=== PATIENT | female | born 1980 | race Caucasian/White ===

== ENCOUNTER 2017-04-22 09:17 | Day surgery (SDC) | payer MEDICAID ==
[2017-04-22 09:49] VITALS: BMI 41.1
[2017-04-22] MEDS ORDERED: Lactated Ringer's 500 ML IV SCH (12:30)
[2017-04-22] MEDS ORDERED: Propofol 10 mg/ml Inj (20 ML) ONE ×2 (12:52→12:53)
[2017-04-22] MEDS ORDERED: Lidocaine Hydrochloride 10 ML INJ ONE (12:52)
[2017-04-22] MEDS ORDERED: Lactated Ringer's 500 ML IV ONE (12:56)
[2017-04-22 13:49] VITALS: O2SAT 99
[2017-04-22 14:33] VITALS: BP 121/69; PULSE 69; RESP 18; TEMP 97.8
== END 2017-04-22 14:28 | disposition home or self-care (01) ==
LOC: C.ENDO 09:17
PROVIDERS: ATTEND Internal Medicine Gastroenterology
DX: K29.70 Gastritis, unspecified, without bleeding (principal); B96.81 Helicobacter pylori [H. pylori] as the cause of diseases classified elsewhere
CPT/HCPCS: 43239; 84703; 88305; 88313; 88342; J2704; J3010; J7120